=== PATIENT | male | born 1995 | race Caucasian/White ===

== ENCOUNTER 2019-11-10 12:21 | Inpatient (IN) | payer MEDICAID, OTHER ==
[~2019-11-10] VITALS: Ht 185.4 cm; Wt 85.5 kg
[2019-11-10] MEDS ORDERED: SODIUM CHLORIDE 0.9% 1,000 ML IV ONE (13:43)
[2019-11-10] MEDS ORDERED: ONDANSETRON 2MG/ML, 2ML IVPush ONE (14:00)
[2019-11-10] MEDS ORDERED: ONDANSETRON 2MG/ML, 2ML ONE (14:00)
[2019-11-10] MEDS ORDERED: SODIUM CHLORIDE FLUSH 10ML SYR IVF ONE (14:00)
[2019-11-10] MEDS ORDERED: HYDROmorphone 1 MG/ML, 1ML INJ ONE ×2 (14:00→14:49)
[2019-11-10 14:10] LABS: BASOPHILS # (AUTO) 0.05 x10^3/uL (0-0.1); BASOPHILS % (AUTO) 1 % (0-1); EOSINOPHILS # (AUTO) 0.02 x10^3/uL (0-0.4); EOSINOPHILS % (AUTO) 0 % (1-7); LYMPHOCYTES # (AUTO) 1.78 x10^3/uL (1-3.4); LYMPHOCYTES % (AUTO) 18 % (22-44); MD NO; MEAN CORPUSCULAR HEMOGLOBIN 30.4 pg (27.5-34.5); MEAN CORPUSCULAR HGB CONC 33.9 g/dL (33.2-36.2); MEAN CORPUSCULAR VOLUME 89.7 fL (81-97); MEAN PLATELET VOLUME 8.1 fL (7.4-10.4); MONOCYTES # (AUTO) 0.71 x10^3/uL (0.2-0.8); MONOCYTES % (AUTO) 7 % (2-9); NEUTROPHILS # (AUTO) 7.55 x10^3/uL (1.8-6.8); NEUTROPHILS % (AUTO) 75 % (42-75); PLATELET COUNT 268 x10^3/uL (130-400); RED BLOOD COUNT 5.54 x10^6/uL (4.38-5.82); RED CELL DISTRIBUTION WIDTH 12.7 % (9.4-14.8)
[2019-11-10] MEDS: HYDROmorphone 1 MG/ML, 1ML INJ IVPush PRN ×2 (14:20→14:45)
[2019-11-10 14:24] LABS: ALANINE AMINOTRANSFERASE 63 U/L (12-78); ALBUMIN 3.9 g/dL (3.4-5.0); ANION GAP 7 mmol/L (5-15); CALCIUM 8.5 mg/dL (8.5-10.1); CHLORIDE 104 mmol/L (98-107); CREATININE 0.96 mg/dL (0.7-1.3)
[2019-11-10 14:27] LABS: ALKALINE PHOSPHATASE 73 U/L (45-117); BILIRUBIN,TOTAL 0.8 mg/dL (0.2-1.0); TOTAL PROTEIN 7.2 g/dL (6.4-8.2)
[2019-11-10] MEDS ORDERED: LIDOCAINE-MPF 1%, 5ML ONE (14:58)
[2019-11-10 15:33] LABS: GLUCOSE, CSF 50 mg/dL (40-80); TOTAL PROTEIN,CSF 83 mg/dL (15-45)
[2019-11-10] MEDS ORDERED: KETOROLAC 30 MG/1 ML IVPush ONE (16:00)
[2019-11-10] MEDS ORDERED: KETOROLAC 30 MG/1 ML ONE (16:02)
[2019-11-10] MEDS ORDERED: ACYCLOVIR 800 MG in SODIUM CHLORIDE 0.9% 100 ML IV ONE (16:30)
--- NOTE | 2019-11-10 16:33 | NUR ---
Break RN: assumed care of pt for lunch break only. pt resting in position of comfort s/p LP. pt reports that he is currently pain free at this time. Dr Plunkett at bedside for recheck. pt to be admitted. mother at bedside
[2019-11-10] MEDS ORDERED: VALA500T8 PO (16:46)
[2019-11-10] MEDS ORDERED: PRED1TAB19 PO (16:50)
--- NOTE | 2019-11-10 16:55 | NUR ---
PT TO BE ADMITTED. PROVIDER DISCUSSED POC AND PT AGREES WITH POC.
[2019-11-10 17:35] VITALS: BP 133/76
[2019-11-10] MEDS: SODIUM CHLORIDE 0.9% 1,000 ML IV SCH (17:53)
[2019-11-10] MEDS ORDERED: KETOROLAC 30 MG/1 ML IV PRN (19:00)
[2019-11-10] MEDS ORDERED: BISACODYL 10 MG SUPP PR PRN (19:00)
[2019-11-10] MEDS ORDERED: POLYETHYLENE GLYCOL 17 GM PACKET PO PRN (19:00)
[2019-11-10 19:07] VITALS: BP 123/83
[2019-11-10] MEDS: NICOTINE 7 MG/24 HR PATCH.TD24 TD SCH (19:30)
[2019-11-11] MEDS: ACETAMINOPHEN 325 MG TABLET PO PRN ×2 (00:06→22:08)
[2019-11-11] MEDS: ONDANSETRON 2MG/ML, 2ML IVPush PRN ×3 (00:57→21:05)
[2019-11-11] MEDS: ACYCLOVIR 800 MG in SODIUM CHLORIDE 0.9% 250 ML IV SCH ×3 (01:12→17:10)
[2019-11-11 01:49] VITALS: BP 137/84
[2019-11-11 05:35] LABS: BASOPHILS # (AUTO) 0.05 x10^3/uL (0-0.1); BASOPHILS % (AUTO) 0 % (0-1); EOSINOPHILS # (AUTO) 0.04 x10^3/uL (0-0.4); EOSINOPHILS % (AUTO) 0 % (1-7); LYMPHOCYTES # (AUTO) 2.59 x10^3/uL (1-3.4); LYMPHOCYTES % (AUTO) 21 % (22-44); MD NO; MEAN CORPUSCULAR HEMOGLOBIN 30.6 pg (27.5-34.5); MEAN CORPUSCULAR HGB CONC 34.1 g/dL (33.2-36.2); MEAN PLATELET VOLUME 8.3 fL (7.4-10.4); MONOCYTES # (AUTO) 1.33 x10^3/uL (0.2-0.8); MONOCYTES % (AUTO) 11 % (2-9); NEUTROPHILS # (AUTO) 8.26 x10^3/uL (1.8-6.8); NEUTROPHILS % (AUTO) 67 % (42-75); PLATELET COUNT 246 x10^3/uL (130-400); RED BLOOD COUNT 4.97 x10^6/uL (4.38-5.82); RED CELL DISTRIBUTION WIDTH 12.6 % (9.4-14.8)
[2019-11-11 05:39] LABS: ANION GAP 5 mmol/L (5-15); CALCIUM 8.1 mg/dL (8.5-10.1); CHLORIDE 109 mmol/L (98-107); CREATININE 1.08 mg/dL (0.7-1.3)
[2019-11-11 07:53] VITALS: BP 121/70
[2019-11-11] MEDS: SODIUM CHLORIDE 0.9% 1,000 ML IV SCH ×2 (08:53→17:10)
[2019-11-11] MEDS: SENNA/DOCUSATE TABLET PO SCH (08:53)
[2019-11-11 12:55] VITALS: BP 124/86
[2019-11-11] MEDS: HYDROmorphone 2 MG/ML, 1ML IVPush PRN ×2 (14:06→21:05)
[2019-11-11 19:24] VITALS: BP 124/79
[2019-11-11] MEDS: NICOTINE 7 MG/24 HR PATCH.TD24 TD SCH (19:30)
[2019-11-12 00:38] VITALS: BP 130/89
[2019-11-12] MEDS: ACYCLOVIR 800 MG in SODIUM CHLORIDE 0.9% 250 ML IV SCH ×3 (01:12→17:45)
[2019-11-12] MEDS: HYDROmorphone 2 MG/ML, 1ML IVPush PRN ×4 (03:19→19:08)
[2019-11-12] MEDS: ONDANSETRON 2MG/ML, 2ML IVPush PRN ×3 (03:19→19:10)
[2019-11-12] MEDS: ACETAMINOPHEN 325 MG TABLET PO PRN ×4 (03:19→19:34)
[2019-11-12 06:14] LABS: ANION GAP 5 mmol/L (5-15); CALCIUM 8.2 mg/dL (8.5-10.1); CHLORIDE 110 mmol/L (98-107)
[2019-11-12 06:26] LABS: BASOPHILS # (AUTO) 0.02 x10^3/uL (0-0.1); BASOPHILS % (AUTO) 0 % (0-1); EOSINOPHILS # (AUTO) 0.06 x10^3/uL (0-0.4); EOSINOPHILS % (AUTO) 1 % (1-7); LYMPHOCYTES # (AUTO) 2.27 x10^3/uL (1-3.4); LYMPHOCYTES % (AUTO) 27 % (22-44); MD NO; MEAN CORPUSCULAR HEMOGLOBIN 30.5 pg (27.5-34.5); MEAN CORPUSCULAR VOLUME 89.6 fL (81-97); MEAN PLATELET VOLUME 8.1 fL (7.4-10.4); MONOCYTES # (AUTO) 0.63 x10^3/uL (0.2-0.8); MONOCYTES % (AUTO) 8 % (2-9); NEUTROPHILS # (AUTO) 5.49 x10^3/uL (1.8-6.8); NEUTROPHILS % (AUTO) 65 % (42-75); PLATELET COUNT 240 x10^3/uL (130-400); RED BLOOD COUNT 5.01 x10^6/uL (4.38-5.82)
[2019-11-12 06:42] VITALS: BP 122/73
[2019-11-12] MEDS: SODIUM CHLORIDE 0.9% 1,000 ML IV SCH ×2 (07:43→17:04)
[2019-11-12] MEDS: SENNA/DOCUSATE TABLET PO SCH (09:15)
[2019-11-12 12:15] VITALS: BP 126/89
[2019-11-12] MEDS: NICOTINE 7 MG/24 HR PATCH.TD24 TD SCH (19:30)
[2019-11-12 20:28] VITALS: BP 136/90
[2019-11-13] MEDS: ACETAMINOPHEN 325 MG TABLET PO PRN (00:17)
[2019-11-13] MEDS: HYDROmorphone 2 MG/ML, 1ML IVPush PRN (00:17)
[2019-11-13 01:25] VITALS: BP 134/88
[2019-11-13] MEDS: ONDANSETRON 2MG/ML, 2ML IVPush PRN (01:31)
[2019-11-13] MEDS: ACYCLOVIR 800 MG in SODIUM CHLORIDE 0.9% 250 ML IV SCH (01:32)
[2019-11-13 04:47] LABS: BASOPHILS # (AUTO) 0.05 x10^3/uL (0-0.1); BASOPHILS % (AUTO) 1 % (0-1); EOSINOPHILS # (AUTO) 0.13 x10^3/uL (0-0.4); EOSINOPHILS % (AUTO) 2 % (1-7); LYMPHOCYTES # (AUTO) 2.46 x10^3/uL (1-3.4); LYMPHOCYTES % (AUTO) 28 % (22-44); MD NO; MEAN CORPUSCULAR HEMOGLOBIN 30.6 pg (27.5-34.5); MEAN CORPUSCULAR HGB CONC 33.7 g/dL (33.2-36.2); MEAN CORPUSCULAR VOLUME 90.7 fL (81-97); MEAN PLATELET VOLUME 7.8 fL (7.4-10.4); MONOCYTES % (AUTO) 8 % (2-9); NEUTROPHILS # (AUTO) 5.53 x10^3/uL (1.8-6.8); NEUTROPHILS % (AUTO) 62 % (42-75); PLATELET COUNT 273 x10^3/uL (130-400); RED BLOOD COUNT 5.12 x10^6/uL (4.38-5.82); RED CELL DISTRIBUTION WIDTH 12.2 % (9.4-14.8)
[2019-11-13 05:00] LABS: ANION GAP 7 mmol/L (5-15); CALCIUM 8.4 mg/dL (8.5-10.1); CHLORIDE 108 mmol/L (98-107)
[2019-11-13 05:01] LABS: CREATININE 1.08 mg/dL (0.7-1.3)
[2019-11-13] MEDS: SODIUM CHLORIDE 0.9% 1,000 ML IV SCH (05:39)
[2019-11-13] MEDS ORDERED: IBUPROFEN 200 MG TABLET PO PRN (06:30)
[2019-11-13 07:49] VITALS: BP 119/77
[2019-11-13] MEDS: SENNA/DOCUSATE TABLET PO SCH (09:00)
[2019-11-13] MEDS ORDERED: VALACYCLOVIR 500MG TABLET PO SCH (10:00)
[2019-11-13] MEDS ORDERED: VALA500T8 PO (10:52)
[2019-11-13] MEDS ORDERED: IBUP-1902 PO (10:52)
== END 2019-11-13 12:45 | disposition home or self-care (01) | DRG 51 ==
LOC: ED 13:29 → EDIP 16:37 → 3N 17:32
PROVIDERS: ADMIT Family Medicine; ATTEND Hospitalist
PROC: 009U3ZX Drainage of Spinal Canal, Percutaneous Approach, Diagnostic (ICD-10-PCS; principal; 2019-11-10)
DX: B00.3 Herpesviral meningitis (principal); A60.00 Herpesviral infection of urogenital system, unspecified; F12.90 Cannabis use, unspecified, uncomplicated; F17.200 Nicotine dependence, unspecified, uncomplicated; Z80.0 Family history of malignant neoplasm of digestive organs; Z82.49 Family history of ischemic heart disease and other diseases of the circulatory system
CPT/HCPCS: 36415; 62270; 70450; 80048; 80053; 82945; 84157; 85025; 86592; 86694; 86695; 86696; 87070; 87205; 87252; 87491; 87529; 87591; 87806; 89051; 96361; 96374; 96375; G0378; J0133; J1170; J1885; J2405; G0475; J7030; J7050

== ENCOUNTER → 2019-12-13 | Outpatient (CLI) | payer MEDICAID ==
[~2019-12-13] MED LIST: IBUP-1902 PO; OMNIPAQUE 350 MG/ML, 150 ML BOTTLE ONE; PRED1TAB19 PO; VALA500T8 PO
== END | disposition home or self-care (01) ==
LOC: CFH 07:43
PROVIDERS: ATTEND Radiology Diagnostic Radiology
DX: N50.811 Right testicular pain (principal); I86.1 Scrotal varices
CPT/HCPCS: 74178; Q9967

== ENCOUNTER 2020-06-27 22:35 | Emergency (ER) | payer MEDICAID ==
[~2020-06-27] VITALS: Ht 190.5 cm; Wt 80.0 kg
[~2020-06-27 22:35] MED LIST changes: -OMNIPAQUE 350 MG/ML, 150 ML BOTTLE ONE
[2020-06-27] MEDS ORDERED: KETOROLAC 30 MG/1 ML ONE (22:52)
[2020-06-27] MEDS ORDERED: HYDROmorphone 1 MG/ML, 1ML INJ ONE (22:53)
[2020-06-27] MEDS ORDERED: CYCLOBENZAPRINE 10 MG TABLET ONE (22:53)
[2020-06-27] MEDS ORDERED: DIAZEPAM 5 MG TABLET ONE (22:54)
[2020-06-27] MEDS ORDERED: HYDROmorphone 2 MG/ML, 1ML IM ONE (23:00)
[2020-06-27] MEDS ORDERED: DIAZEPAM 5 MG TABLET PO ONE (23:00)
[2020-06-27] MEDS ORDERED: KETOROLAC 30 MG/1 ML IM ONE (23:00)
--- NOTE | 2020-06-27 23:14 | NUR ---
PT MEDICATED PER EMAR, PT PLACED ON ALL MONITORS, CALL LIGHT WITHIN REACH, NO OTHER NEEDS AT THIS TIME.
[2020-06-28] MEDS ORDERED: MORPHINE SULFATE 4 MG/ML, 1ML IVPush PRN (01:00)
[2020-06-28] MEDS ORDERED: ONDANSETRON 2MG/ML, 2ML IVPush ONE (01:00)
[2020-06-28] MEDS ORDERED: SODIUM CHLORIDE FLUSH 10ML SYR IVF ONE (01:00)
[2020-06-28] MEDS ORDERED: ONDANSETRON 2MG/ML, 2ML ONE (01:24)
[2020-06-28] MEDS ORDERED: MORPHINE SULFATE 4 MG/ML, 1ML ONE (01:25)
--- NOTE | 2020-06-28 01:42 | NUR ---
PIV ESTABLISHED, PT MEDICATED PER EMAR, PT ON ALL MONITORS.
[2020-06-28 02:27] VITALS: BP 136/84
--- NOTE | 2020-06-28 02:28 | NUR ---
Patient/Caregiver given discharge instructions and they have confirmed that they understand the instructions. Patient wheeled to dc desk, caregiver bringing car up to front entrance. pt denies further questions
== END 2020-06-28 02:30 | disposition home or self-care (01) ==
LOC: ED 06-28 02:05
DX: S39.012A Strain of muscle, fascia and tendon of lower back, initial encounter (principal); M62.838 Other muscle spasm; F17.210 Nicotine dependence, cigarettes, uncomplicated; X58.XXXA Exposure to other specified factors, initial encounter; Y93.89 Activity, other specified; Y92.89 Other specified places as the place of occurrence of the external cause; Y99.8 Other external cause status
CPT/HCPCS: 96372; 96374; 96375; 99285; 99406; J1170; J1885; J2270; J2405